=== PATIENT | female | born 1965 | race African-American/Black ===

== ENCOUNTER 2022-07-13 00:40 | Day surgery (SDC) | payer OTHER, SELFPAY ==
[2022-06-26 11:00] VITALS: BMI 33.0
--- NOTE | 2022-07-11 20:01 | PM.HPGS ---
History of Present Illness History of Present Illness Consent: Risks, benefits, and alternatives have been discussed and questions answered. Patient agrees to proceed with procedure. Chief complaint: fam hx of colon cancer Narrative: Radha Calhoun is a 57 year old female referred for colon cancer screenng. Her father had colon cancer Review of Systems Review of Systems: All systems reviewed & are unremarkable except as noted in HPI and below PMFSH Past Medical History Medical History HLD (hyperlipidemia) IFG (impaired fasting glucose) Obesity Surgical History Surgical History History of bunionectomy of left great toe Family History Family History Father Hypertension Carcinoma of colon Mother Family history of diabetes mellitus in first degree relative Social History Social History Smoking status: Never smoker Second hand tobacco smoke exposure: No Alcohol intake: never Substance use: never Substance use type: does not use Living arrangements: with family Gender identity (if verbalized by the patient): Female Sexual Orientation (if Verbalized by the Patient): Straight or Heterosexual Meds Home Medications and Allergies Home Medications Medication Instructions Recorded Confirmed Type estradiol 0.0375 mg/24 hr 1 patch topical WEEKLY 06/26/22 06/26/22 History semiweekly transdermal patch (Lyllana) Allergies Allergy/AdvReac Type Severity Reaction Status Date / Time codeine Allergy Severe Seizure Verified 06/26/22 10:59 hydrocodone Allergy Severe Seizure Verified 06/26/22 10:59 propoxyphene Allergy Severe Seizure Verified 06/26/22 10:59 Exam Const: General: alert Orientation/consciousness: patient oriented x3 Resp: Auscultation: clear to auscultation bilaterally Cardio: Rhythm: regular rhythm GI: GI Palp: Yes Soft to palpation and No Tenderness to palpation present (GI) Neuro: General: patient oriented x3 Assessment and Plan Assessment and plan (1) Colon cancer screening: Code(s): Z12.11 - Encounter for screening for malignant neoplasm of colon Status: Acute Assessment and Plan: Colonoscopy with possible biopsy or polypectomy or cautery or injection of substances.
[2022-07-13 07:44] VITALS: BP 119/70; PULSE 70; RESP 18; TEMP 36.1; O2SAT 98; BMI 33.5
[2022-07-13] MEDS: LACTATED RINGERS 1,000 ML 150 ML IV CONT (08:05)
--- NOTE | 2022-07-13 08:35 | WPDANESEPPF ---
Anes - Initial Pre Proc Eval Procedure: Operation Date: 07/13/22 09:00 Proposed Procedures p Screening Colonoscopy - Evan Licona MD Date/Time: 07/13/22 08:35 Surgeon: Evan Licona MD Pre Op Diagnosis: fam hx of colon cancer Patient Data Age: 57 Gender: F Height: 1.57 m Weight: 83.2 kg Last Vital Signs Temp 97 F L 07/13/22 07:44 Pulse 70 07/13/22 07:44 Resp 18 07/13/22 07:44 BP 119/70 07/13/22 07:44 Pulse Ox 98 07/13/22 07:44 O2 Del Method Room Air 07/13/22 07:44 Allergies Allergy/AdvReac Type Severity Reaction Status Date / Time codeine Allergy Severe Seizure Verified 06/26/22 10:59 hydrocodone Allergy Severe Seizure Verified 06/26/22 10:59 propoxyphene Allergy Severe Seizure Verified 06/26/22 10:59 Home Medications Medication Instructions Recorded Confirmed Type estradiol 0.0375 mg/24 hr 1 patch topical WEEKLY 06/26/22 06/26/22 History semiweekly transdermal patch (Lyllana) Patient hx anesthesia problems: none Family hx anesthesia problems: none Results Review: All pre-operative results and documents have been reviewed as part of the pre-operative evaluation. [facility] Past Medical History Medical History HLD (hyperlipidemia) IFG (impaired fasting glucose) Obesity Surgical History Surgical History History of bunionectomy of left great toe Family History Family History Father Hypertension Carcinoma of colon Mother Family history of diabetes mellitus in first degree relative Social History Social History Smoking status: Never smoker Second hand tobacco smoke exposure: No Alcohol intake: never Substance use: never Substance use type: does not use Living arrangements: with family Gender identity (if verbalized by the patient): Female Sexual Orientation (if Verbalized by the Patient): Straight or Heterosexual Anes - Eval Final PreProcedure Day of Procedure 07/13/22 08:35 Patient weight: obese Heart: regular rate and rhythm Lungs: clear to auscultation Airway: Mallampati scale class II Neurological: alert and oriented Last oral intake: >/= 8 hours ASA classification: III Emergent: no Anesthetic plan: proceed Anesthesia type and monitoring: general GIVS and standard monitoring Results Review: All pre-operative results and documents have been reviewed as part of the pre-operative evaluation. Informed Consent: The patient's anesthetic plan and its attendant risks and benefits were discussed with the patient/family/POA. Questions were solicited and answers provided to the satisfaction of the patient/family/POA.
[2022-07-13 09:08] VITALS: BP 103/60; PULSE 71; RESP 20; O2SAT 98
[2022-07-13 09:18] VITALS: BP 108/65; PULSE 76; RESP 20; O2SAT 98
[2022-07-13 09:28] VITALS: BP 118/73; PULSE 66; RESP 20; O2SAT 100
== END 2022-07-13 09:49 | disposition home or self-care (01) ==
PROVIDERS: PCP Family Medicine; Visit Provider Internal Medicine Gastroenterology
PROC: 0DJD8ZZ Inspection of Lower Intestinal Tract, Via Natural or Artificial Opening Endoscopic (ICD-10-PCS; CPT 45378; principal; 2022-07-13 09:00)
DX: Z12.11 Encounter for screening for malignant neoplasm of colon (principal); K57.30 Diverticulosis of large intestine without perforation or abscess without bleeding; Z80.0 Family history of malignant neoplasm of digestive organs; E66.9 Obesity, unspecified; Z68.33 Body mass index [BMI] 33.0-33.9, adult
CPT/HCPCS: 45378; J2704; J7120